=== PATIENT | female | born 1935 | race Caucasian/White ===

== ENCOUNTER 2021-02-21 09:06 | Inpatient (IN) | payer MEDICARE, OTHER ==
[2021-02-21] MEDS ORDERED: ACETAMINOPHEN 325 MG TABLET PO PRN ×2 (11:30→20:00)
[2021-02-21] MEDS ORDERED: MAG HYDROX/AL HYDROX/SIMETH 30 ML UDC PO PRN (11:30)
[2021-02-21] MEDS ORDERED: hydrALAZINE HCL IV 20 MG VIAL IV PRN (11:30)
[2021-02-21 12:00] VITALS: BP 132/58
[2021-02-21] MEDS: BLOOD SUGAR DIAGNOSTIC 1 EACH STRIP IN SCH ×5 (12:00→22:00)
[2021-02-21 12:23] LABS: BASOPHILS % (AUTO) 0.5 % (0.0-2.0); HEMATOCRIT 37 % (33-45); HEMOGLOBIN 12.6 g/dL (11.5-14.8); LYMPHOCYTES % (AUTO) 15.4 % (20.0-44.0); MEAN CORPUSCULAR HGB CONC 34 g/dl (31.0-36.0); MEAN CORPUSCULAR VOLUME 91 fL (82-100); MONOCYTES # (AUTO) 0.4 K/uL (0.1-1.30); MONOCYTES % (AUTO) 5.6 % (2.0-12.0); NEUTROPHILS # (AUTO) 5.1 K/uL (1.8-8.9); NEUTROPHILS % (AUTO) 78.5 % (43.0-81.0); PLATELET COUNT (AUTO) 293 K/uL (150-450); RED BLOOD CELL COUNT(AUTO) 4.08 MIL/uL (4.0-5.2); WHITE BLOOD COUNT (AUTO) 6.6 K/uL (4.3-11.0)
--- NOTE | 2021-02-21 12:46 | NUR ---
TEXTED DR. HADLEY FOR MRI APPROVAL.
--- NOTE | 2021-02-21 12:48 | NUR ---
ON HOLD FOR NOW PER DR. HADLEY, HE WILL LET US KNOW.
[2021-02-21 12:55] LABS: ALANINE AMINOTRANSFERASE 14 U/L (12-78); ALBUMIN 3.5 g/dL (3.4-5.0); ALKALINE PHOSPHATASE 54 U/L (46-116); ASPARTATE AMINOTRANSFERASE 13 U/L (15-37); BILIRUBIN,TOTAL 0.5 mg/dL (0.2-1.0); CALCIUM, SERUM 8.9 mg/dL (8.5-10.1); CARBON DIOXIDE 28 mmol/L (21-32); CHLORIDE 99 mmol/L (98-107); CREATININE 0.9 mg/dL (0.6-1.3); GLUCOSE 115 mg/dL (74-106); MAGNESIUM 2.4 mg/dL (1.8-2.4); PHOSPHORUS 3.6 mg/dL (2.5-4.9); POTASSIUM 3.9 mmol/L (3.5-5.1); SODIUM SERUM 137 mmol/L (136-145); TOTAL PROTEIN, SERUM 7.2 g/dL (6.4-8.2); UREA NITROGEN, BLOOD 13 mg/dL (7-18)
[2021-02-21 13:06] LABS: CHOLESTEROL 255 mg/dL (<200); HDL CHOLESTEROL 96 mg/dL (40-60); LDL 143 mg/dL (0-99); TRIGLYCERIDES 96 mg/dL (30-150)
--- NOTE | 2021-02-21 13:09 | NUR ---
MRI APPROVED, LEAD RUBY ON RAILS DEVELOPER NOTIFIED
[2021-02-21] MEDS: ENOXAPARIN SODIUM 40 MG/0.4 ML DISP.SYRIN SQ SCH (14:17)
[2021-02-21] MEDS ORDERED: BENA20TA9 PO (14:26)
[2021-02-21] MEDS ORDERED: GABA-532 PO (14:26)
[2021-02-21] MEDS ORDERED: AMLO-213 PO (14:26)
[2021-02-21] MEDS ORDERED: CARV12.52 PO (14:26)
[2021-02-21] MEDS ORDERED: FURO40TA5 PO (14:26)
[2021-02-21] MEDS ORDERED: ASPI-1420 PO (14:26)
[2021-02-21] MEDS ORDERED: DULO60CA64 PO (14:26)
[2021-02-21] MEDS ORDERED: LORA-259 PO (14:26)
[2021-02-21] MEDS ORDERED: OLOP2.5D12 EACHEYE (14:26)
[2021-02-21] MEDS ORDERED: MEMA10TA56 PO (14:27)
[2021-02-21] MEDS ORDERED: ATOR40TA PO (14:27)
[2021-02-21] MEDS ORDERED: IBUP-1953 PO (14:27)
[2021-02-21] MEDS ORDERED: AMIT10TA6 PO (14:40)
[2021-02-21] MEDS ORDERED: MIRT-91 PO (14:40)
[2021-02-21] MEDS ORDERED: ACET-868 PO (14:40)
[2021-02-21] MEDS ORDERED: MECL-159 PO (14:40)
[2021-02-21] MEDS ORDERED: DOCU-141 PO (14:40)
[2021-02-21] MEDS ORDERED: QUET25TA PO (14:40)
[2021-02-21 16:00] VITALS: BP 97/51
[2021-02-21] MEDS ORDERED: OLANZAPINE 10 MG VIAL IM ONE (19:00)
--- NOTE | 2021-02-21 19:07 | NUR ---
RN NOTE PT IS AGITATED, STRIKING OUT AT NURSING PERSONNEL AND MDs, expressing frustation and foul language in her tongue towards nursing staff. Security called, pt calmed down for a short while and began agitating again, pt removed one of the IVs on her forearm, MD aware.
--- NOTE | 2021-02-21 19:30 | NUR ---
DROP WIRE OPERATOR NOTES RECEIVED ON BED CONFUSED,VERY MUCH AGITATED,SITTER AT BEDSIDE.SALINE LOCK RIGHT FORE ARM INTACT AND PATENT.PATIENT REFUSED TO WEAR HOSPITAL GOWN.CALL LIGHT IN [facility],WILL CONTINUE TO MONITOR BEHAVIOR.
[2021-02-21 20:00] VITALS: BP 96/53
[2021-02-21] MEDS ORDERED: MECLIZINE HCL 25 MG TABLET PO PRN (20:00)
[2021-02-21] MEDS ORDERED: LORAZEPAM 1 MG TABLET PO PRN (20:00)
[2021-02-21] MEDS ORDERED: IBUPROFEN 400 MG TABLET PO PRN (20:00)
--- NOTE | 2021-02-21 21:30 | NUR ---
WAIST CUTTER NOTES ALL DUE PO MEDS ADMINISTERED,TAKEN WELL
[2021-02-21] MEDS: DOCUSATE SODIUM 100 MG CAPSULE PO SCH (21:46)
[2021-02-21] MEDS: MEMANTINE HCL 5 MG TABLET PO SCH (21:47)
[2021-02-21] MEDS: ACETAMINOPHEN 325 MG TABLET PO SCH (21:49)
[2021-02-21] MEDS ORDERED: MIRTAZAPINE 15 MG TABLET PO SCH (22:00)
[2021-02-21] MEDS ORDERED: QUETIAPINE FUMARATE 25 MG TABLET PO SCH (22:00)
[2021-02-21] MEDS ORDERED: SIMVASTATIN 20 MG TABLET PO SCH (22:00)
[2021-02-21] MEDS ORDERED: SIMVASTATIN 40 MG TABLET PO SCH (22:00)
[2021-02-21] MEDS ORDERED: ATORVASTATIN 40 MG TABLET PO SCH (22:00)
--- NOTE | 2021-02-21 22:00 | NUR ---
CLOTH DESIGNER NOTES ACCU-CHECK BLOOD SUGAR CHECK 104,NO INSULIN COVERAGE.
[2021-02-22] VITALS: BP 134/63
--- NOTE | 2021-02-22 01:04 | NUR ---
SENIOR MECHANICAL DESIGN ENGINEER NOTES AWAKE,VERY ANXIOUS,WALKS AROUND IN THE ROOM,MEDICATED WITH ATIVAN 1MG PO ORDERED FOR ANXIETY.FALL PRECAUTION OBSERVED.SITTER AT BEDSIDE FOR SAFETY.
--- NOTE | 2021-02-22 03:30 | NUR ---
COMMUNITY SERVICE DIRECTOR NOTES SLEEPING THIS TIME,SITTER AT BEDSIDE.
[2021-02-22 04:00] VITALS: BP 128/72
--- NOTE | 2021-02-22 06:00 | NUR ---
CONVEYOR LINE BATTERY CHARGER NOTES ACCU-CHECK BLOOD SUGAR CHECK 93,NO INSULIN COVERAGE.
--- NOTE | 2021-02-22 06:07 | NUR ---
TRANSPORTATION INSPECTOR NOTES AMBULATE IN THE HALLWAYS WITH WALKER ACCOMPANIED BY NURSE AND SITTER,TOLERATED WELL.NO SOB NOTED.
--- NOTE | 2021-02-22 06:14 | NUR ---
COLLECTION TECHNICIAN NOTES STILL REFUSED TELE BOX.BLOOD SUGAR WITH IN NORMAL LIMITS,STILL WITH EPISODE OF CONFUSION,EASILY GETS AGITATED.FOR MRI BRAIN TODAY WITHOUT CONTRAST.CHECKLIST DONE.NO DISTRESS.
[2021-02-22 06:16] LABS: CALCIUM, SERUM 8.7 mg/dL (8.5-10.1); CREATININE 0.9 mg/dL (0.6-1.3); MAGNESIUM 2.3 mg/dL (1.8-2.4); PHOSPHORUS 3.9 mg/dL (2.5-4.9); POTASSIUM 3.5 mmol/L (3.5-5.1)
[2021-02-22 06:30] LABS: BASOPHILS % (AUTO) 0.7 % (0.0-2.0); HEMATOCRIT 32 % (33-45); HEMOGLOBIN 10.9 g/dL (11.5-14.8); LYMPHOCYTES # (AUTO) 1.4 K/uL (0.8-4.8); LYMPHOCYTES % (AUTO) 21.5 % (20.0-44.0); MEAN CORPUSCULAR HGB CONC 35 g/dl (31.0-36.0); MEAN CORPUSCULAR VOLUME 90 fL (82-100); MONOCYTES # (AUTO) 0.6 K/uL (0.1-1.30); MONOCYTES % (AUTO) 8.5 % (2.0-12.0); NEUTROPHILS # (AUTO) 4.6 K/uL (1.8-8.9); NEUTROPHILS % (AUTO) 69.3 % (43.0-81.0); PLATELET COUNT (AUTO) 296 K/uL (150-450); RED BLOOD CELL COUNT(AUTO) 3.51 MIL/uL (4.0-5.2); WHITE BLOOD COUNT (AUTO) 6.7 K/uL (4.3-11.0)
[2021-02-22] MEDS: BLOOD SUGAR DIAGNOSTIC 1 EACH STRIP IN SCH ×4 (06:42→21:59)
--- NOTE | 2021-02-22 07:35 | NUR ---
MS RN OPENING NOTES RECEIVED PT IN BED, RESTING WITH EYES CLOSED. BREATHING IS EVEN AND UNLABORED. NO S/SX OF RESPIRATORY DISTRESS. PT IS ON NASAL CANNULA AT 4L/MIN AND TOLERATING WELL. NO SOB NOTED. IV ACCESS IN R FOREARM #20. IV IS INTACT, PATENT, AND FLUSHING WELL. SAFETY MEASURES IN PLACE: BED IN LOWEST, LOCKED POSITION, BRAKES ON, SIDERAILS UP x2. SITTER AT BEDSIDE.WILL CONTINUE TO MONITOR.
[2021-02-22] MEDS ORDERED: ASPIRIN EC 81 MG TABLET.DR PO SCH (09:00)
[2021-02-22] MEDS: ENOXAPARIN SODIUM 40 MG/0.4 ML DISP.SYRIN SQ SCH ×2 (09:00→09:03)
[2021-02-22] MEDS: GABAPENTIN 300 MG CAPSULE PO SCH ×2 (09:04→17:07)
[2021-02-22] MEDS: PANTOPRAZOLE 40 MG TABLET.DR PO SCH (09:04)
[2021-02-22] MEDS: ASPIRIN 81 MG TAB.CHEW PO SCH (09:04)
[2021-02-22] MEDS: DULOXETINE HCL 30 MG CAPSULE.DR PO SCH (09:04)
[2021-02-22] MEDS: FUROSEMIDE 20 MG TABLET PO SCH (09:05)
[2021-02-22] MEDS: CARVEDILOL 12.5 MG TABLET PO SCH ×2 (09:09→17:19)
[2021-02-22] MEDS: AMLODIPINE BESYLATE 10 MG TABLET PO SCH (09:09)
[2021-02-22] MEDS: BENAZEPRIL HCL 20 MG TABLET PO SCH (09:09)
[2021-02-22] MEDS: OLOPATADINE HCL 0.1% OPHTH BOTTLE EACHEYE SCH ×2 (09:11→17:07)
--- NOTE | 2021-02-22 11:00 | NUR ---
ADALI NOTES MIRA ALFARO, IN THE UNIT AND SEEN PATIENT. SPOKE W/ DTJoslyn FENTON ([phone]), AWARE OF PLAN OF CARE FOR PATIENT. Addendum: 02/22/21 at 1242 by MATI SHEFFIELD RN CORRECTION: GRAND ZAKI FENTON
--- NOTE | 2021-02-22 12:35 | NUR ---
RN NOTES SPOKE W/ KAVIN FROM RADIOLOGY, WILL CORROSION CONTROL FITTER PATIENT FOR MRI PROCEDURE. JOSSY CURRENTLY AT [facility] W/ PATIENT AND MADE AWARE TO TRANSLATE FOR PATIENT.
[2021-02-22] MEDS ORDERED: AMITRIPTYLINE HCL 10 MG TABLET PO SCH (18:00)
--- NOTE | 2021-02-22 18:35 | NUR ---
MS RN OPENING NOTES PT IN BED, RESTING COMFORTABLY. PT IS [place] SPEAKING, GRANDDAUGHTER AND TECHNICAL OPERATIONS SPECIALIST TRANSLATED. BREATHING IS EVEN AND UNLABORED. NO S/SX OF RESPIRATORY DISTRESS. NO SOB NOTED. IV ACCESS IN R FOREARM #20. IV IS INTACT, PATENT, AND FLUSHING WELL. NO IVF RUNNING AT THE MOMENT. SAFETY MEASURES IN PLACE: BED IN LOWEST, LOCKED POSITION, BRAKES ON, SIDERAILS UP x2. SITTER AT BEDSIDE. WILL ENDORSE TO ONCOMING SHIFT.
[2021-02-22 20:00] VITALS: BP 93/44
[2021-02-22] MEDS: ACETAMINOPHEN 325 MG TABLET PO SCH (22:00)
[2021-02-22] MEDS: ATORVASTATIN 40 MG TABLET PO SCH (22:00)
[2021-02-22] MEDS: DOCUSATE SODIUM 100 MG CAPSULE PO SCH (22:00)
[2021-02-22] MEDS ORDERED: QUETIAPINE FUMARATE 25 MG TABLET PO SCH (22:00)
[2021-02-22] MEDS: MEMANTINE HCL 5 MG TABLET PO SCH (22:00)
[2021-02-23] VITALS: BP 92/44
[2021-02-23 04:00] VITALS: BP 101/40
[2021-02-23 06:29] LABS: BASOPHILS % (AUTO) 0.6 % (0.0-2.0); CALCIUM, SERUM 8.1 mg/dL (8.5-10.1); CARBON DIOXIDE 30 mmol/L (21-32); CHLORIDE 98 mmol/L (98-107); CREATININE 1.9 mg/dL (0.6-1.3); GLUCOSE 102 mg/dL (74-106); HEMATOCRIT 31 % (33-45); HEMOGLOBIN 10.6 g/dL (11.5-14.8); LYMPHOCYTES # (AUTO) 2.6 K/uL (0.8-4.8); LYMPHOCYTES % (AUTO) 33.6 % (20.0-44.0); MAGNESIUM 2.4 mg/dL (1.8-2.4); MEAN CORPUSCULAR HGB CONC 34 g/dl (31.0-36.0); MEAN CORPUSCULAR VOLUME 92 fL (82-100); MONOCYTES # (AUTO) 0.7 K/uL (0.1-1.30); MONOCYTES % (AUTO) 8.5 % (2.0-12.0); NEUTROPHILS # (AUTO) 4.4 K/uL (1.8-8.9); NEUTROPHILS % (AUTO) 57.3 % (43.0-81.0); PHOSPHORUS 5.8 mg/dL (2.5-4.9); PLATELET COUNT (AUTO) 259 K/uL (150-450); POTASSIUM 3.7 mmol/L (3.5-5.1); RED BLOOD CELL COUNT(AUTO) 3.36 MIL/uL (4.0-5.2); SODIUM SERUM 135 mmol/L (136-145); UREA NITROGEN, BLOOD 20 mg/dL (7-18); WHITE BLOOD COUNT (AUTO) 7.7 K/uL (4.3-11.0)
[2021-02-23] MEDS: BLOOD SUGAR DIAGNOSTIC 1 EACH STRIP IN SCH ×4 (06:38→22:32)
--- NOTE | 2021-02-23 06:45 | NUR ---
NURSE MIDWIFE NOTES AWAKE & RESPONSIVE. NOT IN ANY DISTRESS. NO SOB NOTED. DENIES ANY PAIN OR DISCOMFORT AT THIS TIME. ON TELE SR @ 68 WITH IV-HL PATENT & INTACT. AM CARE DONE. MONITORED ACCORDINGLY. CALL LIGHT WITHIN REACH. BED IN LOWEST POSITION. SR UP X 3 WITH BED ALARM ON FOR SAFETY. WILL ENDORSE TO NEXT SHIFT.
--- NOTE | 2021-02-23 07:36 | NUR ---
JOCKEY VALET OPENING NOTES RECEIVED PATIENT IN BED, ASLEEP. PATIENT ON OXYGEN THERAPY AT 4 LPM VIA NASAL CANNULA; BREATHING EVEN AND UNLABORED AT THIS TIME. TELE MONITOR WITH A CURRENT READING OF ST 70. NO S/S OF PAIN SUCH FACIAL GRIMACING, MOANING OR GUARDING NOTED. IV ACCESS ON RFA G # 20; SL. SAFETY PRECAUTIONS IN PLACE; BED IN LOW POSITION AND LOCKED, RAILS UP X2, CALL LIGHT WITHN REACH. WILL CONTINUE TO MONITOR PATIENT.
[2021-02-23 08:00] VITALS: BP 128/59
--- NOTE | 2021-02-23 08:00 | NUR ---
WEIGHMASTER LEAD NOTES DURING NEUROLOGICAL ASSESSMENT PATIENT SLEEPY AND SAYS SHE STARTED TO FORGET THINGS.
[2021-02-23] MEDS: AMLODIPINE BESYLATE 10 MG TABLET PO SCH (09:00)
[2021-02-23] MEDS: BENAZEPRIL HCL 20 MG TABLET PO SCH (09:00)
[2021-02-23] MEDS: CARVEDILOL 12.5 MG TABLET PO SCH ×2 (09:00→16:04)
[2021-02-23] MEDS: DULOXETINE HCL 30 MG CAPSULE.DR PO SCH (09:49)
[2021-02-23] MEDS: GABAPENTIN 300 MG CAPSULE PO SCH ×2 (09:49→16:06)
[2021-02-23] MEDS: ASPIRIN 81 MG TAB.CHEW PO SCH (09:50)
[2021-02-23] MEDS: OLOPATADINE HCL 0.1% OPHTH BOTTLE EACHEYE SCH ×2 (09:50→16:06)
[2021-02-23] MEDS: PANTOPRAZOLE 40 MG TABLET.DR PO SCH (09:50)
[2021-02-23] MEDS: FUROSEMIDE 20 MG TABLET PO SCH (09:51)
[2021-02-23] MEDS: ENOXAPARIN SODIUM 40 MG/0.4 ML DISP.SYRIN SQ SCH (09:53)
[2021-02-23 12:00] VITALS: BP 107/51
[2021-02-23] MEDS ORDERED: IV NS 0.9% 500 ML IV ONE (13:00)
--- NOTE | 2021-02-23 14:42 | NUR ---
Blending Operator Consultation 11:15am: Blending Operator consultation requested for ischemic stroke. Per ED physicians notes, patient presented to an outside hospital ER with complaints of acute left upper extremity weakness. Per medical history, patient has HTN and baseline dementia. This FACTORY CLERK met with the patient, bedside in her hospital room. Patient was lying down in bed, awake, presented calm. Patient is an 85-year old female, Lebanese speaking. This FACTORY CLERK addressed patient in Lebanese and conducted this interview in Lebanese. Patient is oriented to name, place (stated she is in the hospital), stated that the month is February, and the year is 2020. Patient was able to provide this FACTORY CLERK with her , and the names of her son and [id number] (David and Quincy). Patient states that she lives at home with her son and [id number], is ambulatory with a FWW, and is able to tend to her basic ADLs, however family helps her with any needs she may have. Patient stated I do forget from time to time, and sometimes Ill get agitated, but not all the time. Patient denies use of drugs, alcohol, and cigarettes. Patient denies hx of mental illness, however has baseline Dementia and does take psychiatric medication at home. This FACTORY CLERK administered the PHQ-9, and patient scored a 0 on it, stating that she has not experienced any recent changes in her mood or behavior, and that she is very happy and content at home with her family. Per nursing notes, patient had been agitated, confused, and was using foul language when admitted to the hospital. Patient has a 1:1 sitter. Patient has already been seen by psychiatrist, Dr. Camacho, during this hospitalization (see psychiatry consultation notes). This FACTORY CLERK filed informational materials on stroke, titled Empowerment after Stroke and Caregivers Guide to Stroke, in patients chart, to be provided to family upon discharge. Discharge plans discussed, and patient stated that she will be returning home with her family. Patients affect and behavior during this interview were WNL. Patient maintained appropriate eye contact. Speech was clear, voice was normal. This FACTORY CLERK met with insulation cupola charger Gina and informed her of above.
[2021-02-23 16:50] LABS: CALCIUM, SERUM 7.7 mg/dL (8.5-10.1); CREATININE 1.1 mg/dL (0.6-1.3); POTASSIUM 4.2 mmol/L (3.5-5.1)
[2021-02-23 17:33] VITALS: BP 107/68
--- NOTE | 2021-02-23 18:40 | NUR ---
PITCH WORKER CLOSING NOTES PATIENT REMAINS IN BED, AWAKE, A/O X3. PATIENT ON ROOM AIR; BREATHING EVEN AND UNLABORED AT THIS TIME. TELE MONITOR WITH A CURRENT READING OF ST 70. NO COMPLAINS OF PAIN. IV ACCESS ON L HAND G # 22; SL. ALL NEEDS ATTENDED DURING THE DAY. SAFETY PRECAUTIONS IN PLACE; BED IN LOW POSITION AND LOCKED, RAILS UP X2, CALL LIGHT WITHIN REACH. WILL ENDORSE TO COMMERCIAL ENGINEER NURSE.
--- NOTE | 2021-02-23 19:49 | NUR ---
APPLE SORTER OPENING NOTES Patient is sleeping at this time though easy to wake. Sitter at bedside. No signs of distress. Safety measures in place. Will continue to monitor.
[2021-02-23] MEDS ORDERED: QUETIAPINE FUMARATE 25 MG TABLET PO SCH (22:00)
[2021-02-23] MEDS: ATORVASTATIN 40 MG TABLET PO SCH (22:17)
[2021-02-23] MEDS: ACETAMINOPHEN 325 MG TABLET PO SCH (22:17)
[2021-02-23] MEDS: MEMANTINE HCL 5 MG TABLET PO SCH (22:17)
[2021-02-23] MEDS: DOCUSATE SODIUM 100 MG CAPSULE PO SCH (22:17)
[2021-02-24] VITALS: BP 93/51
--- NOTE | 2021-02-24 01:24 | NUR ---
Patient complain of severe chest pain after ambulating to bathroom, patient noted to be sweating also. VS 102/48, HR 89, O2 96% RR 20. Normal sinus rhythm on monitor. MD notified with new order STAT EKG and STAT CXR. Rt called. Radiology called. B/P too low for nitro per MD. Relayed to patient to be on strict bed rest to conserve energy.
--- NOTE | 2021-02-24 01:56 | NUR ---
Patient given maalox just in case CP is heartburn
--- NOTE | 2021-02-24 02:40 | NUR ---
Patient asleep but easy to wake, reports chest pain much better only a 2/10. EKG shows NSR, CXR negative. made aware.
[2021-02-24 04:07] VITALS: BP 104/54
[2021-02-24] MEDS: BLOOD SUGAR DIAGNOSTIC 1 EACH STRIP IN SCH ×2 (06:34→12:34)
[2021-02-24 06:40] LABS: BASOPHILS % (AUTO) 0.2 % (0.0-2.0); HEMATOCRIT 32 % (33-45); HEMOGLOBIN 10.7 g/dL (11.5-14.8); LYMPHOCYTES # (AUTO) 0.8 K/uL (0.8-4.8); LYMPHOCYTES % (AUTO) 11.9 % (20.0-44.0); MEAN CORPUSCULAR HGB CONC 34 g/dl (31.0-36.0); MEAN CORPUSCULAR VOLUME 92 fL (82-100); MONOCYTES # (AUTO) 0.5 K/uL (0.1-1.30); MONOCYTES % (AUTO) 8.5 % (2.0-12.0); NEUTROPHILS # (AUTO) 5.1 K/uL (1.8-8.9); NEUTROPHILS % (AUTO) 79.4 % (43.0-81.0); PLATELET COUNT (AUTO) 219 K/uL (150-450); RED BLOOD CELL COUNT(AUTO) 3.42 MIL/uL (4.0-5.2); WHITE BLOOD COUNT (AUTO) 6.4 K/uL (4.3-11.0)
[2021-02-24 06:51] LABS: CALCIUM, SERUM 7.7 mg/dL (8.5-10.1); CREATININE 0.9 mg/dL (0.6-1.3); MAGNESIUM 2.3 mg/dL (1.8-2.4); PHOSPHORUS 3.7 mg/dL (2.5-4.9); POTASSIUM 3.8 mmol/L (3.5-5.1)
[2021-02-24 06:54] LABS: CREATININE, URINE 54.3 MG/DL (30.0-125.0)
--- NOTE | 2021-02-24 07:00 | NUR ---
No further episodes of CP. Resolved. Kept on bedrest. Tolerating well. Kept NPO since 0200 maalox admin for upcoming procedure CTA head and neck. Verbal consent obtained via telephone from daughter Arainna Boo. Able to get #20G access to LFA for upcoming procedure. No hypo or hyperglycemic reactions noted.
--- NOTE | 2021-02-24 07:10 | NUR ---
RN OPENING NOTE RECEIVED PATIENT SITTING IN THE BED. A/O X 2-3. ON ROOM AIR, SATURATING WELL AT 97%. NO SOB NOTED. IN NO APPARENT DISTRESS. DENIES ANY PAIN OR DISCOMFORT AT THIS TIME. SAFETY MEASURES MAINTAINED. BED IN LOWEST POSITION, BRAKES LOCKED. SIDE RAILS UP X2. CALL LIGHT WITHIN REACH. WILL CONTINUE PLAN OF CARE. Addendum: 02/24/21 at 0936 by BRANDON DAY RN CONT* IV ACCESS ON L HAND #22 G, INTACT AND PATENT
[2021-02-24 07:13] LABS: BILIRUBIN,URINE NEGATIVE (NEGATIVE); COLOR,URINE YELLOW (YELLOW); LEUKOCYTE ESTERASE ,URINE NEGATIVE (NEGATIVE); NITRITE, URINE NEGATIVE (NEGATIVE); PROTEIN,URINE NEGATIVE (NEGATIVE); UGLUCOSE NEGATIVE (NEGATIVE); UROBILINOGEN,URINE 0.2 EU/dL (0.2)
[2021-02-24 07:37] LABS: BACTERIA,URINE Rare /HPF (None Seen); RBC,URINE 0-2 /HPF (0-2); SQUAMOUS EPITHELIAL CELL,UR Rare /HPF (None Seen); WBC,URINE 0-2 /HPF (0-3)
[2021-02-24] MEDS: AMLODIPINE BESYLATE 10 MG TABLET PO SCH (08:22)
[2021-02-24] MEDS: GABAPENTIN 300 MG CAPSULE PO SCH (08:22)
[2021-02-24 08:23] VITALS: BP 111/62
[2021-02-24] MEDS: DULOXETINE HCL 30 MG CAPSULE.DR PO SCH (08:23)
[2021-02-24] MEDS: BENAZEPRIL HCL 20 MG TABLET PO SCH (08:23)
[2021-02-24] MEDS: PANTOPRAZOLE 40 MG TABLET.DR PO SCH (08:23)
[2021-02-24] MEDS: ASPIRIN 81 MG TAB.CHEW PO SCH (08:23)
[2021-02-24] MEDS: CARVEDILOL 12.5 MG TABLET PO SCH (08:23)
[2021-02-24] MEDS: FUROSEMIDE 20 MG TABLET PO SCH (08:23)
[2021-02-24] MEDS: ENOXAPARIN SODIUM 40 MG/0.4 ML DISP.SYRIN SQ SCH (08:25)
[2021-02-24] MEDS: OLOPATADINE HCL 0.1% OPHTH BOTTLE EACHEYE SCH (08:26)
[2021-02-24] MEDS ORDERED: IOHEXOL-350 100 ML VIAL IV ONE (10:11)
[2021-02-24] MEDS ORDERED: IV NS 0.9% 250 ML IV ONE (10:11)
[2021-02-24] MEDS ORDERED: ATOR40TA PO (12:26)
[2021-02-24] MEDS ORDERED: QUET25TA PO (12:26)
[2021-02-24] MEDS ORDERED: CLOP75TA15 PO (13:57)
--- NOTE | 2021-02-24 15:37 | NUR ---
DISCHARGE NOTE PATIENT DISCHARGED. HEALTH TEACHING AND DISCHARGE INSTRUCTIONS GIVEN TO THE DTR AND GRAND DAUGHTER. VERBALIZED UNDERSTANDING. PT IS STABLE BP 110/62 OH 64 RR 18 T 97.6 SA02 99% REMOVED IV ACCESS AND ID WRISTBAND. PT WAS PICKED UP BY HER DTR VIA PRIVATE CAR.
== END 2021-02-24 15:37 | disposition home or self-care (01) | DRG 69 ==
LOC: TELE 10:20
PROVIDERS: ADMIT Registered Nurse; ATTEND Registered Nurse
DX: G45.9 Transient cerebral ischemic attack, unspecified (principal); F03.91 Unspecified dementia, unspecified severity, with behavioral disturbance; F33.1 Major depressive disorder, recurrent, moderate; N17.9 Acute kidney failure, unspecified; E66.01 Morbid (severe) obesity due to excess calories; I10 Essential (primary) hypertension; R29.700 NIHSS score 0; E78.5 Hyperlipidemia, unspecified; E86.0 Dehydration
CPT/HCPCS: 36415; 70496-TC; 70498-TC; 70551-TC; 71045-TC; 76770-TC; 80048-TC; 80053-TC; 80061-TC; 81001; 82570-TC; 82962-TC; 83735-TC; 84100-TC; 84300-TC; 84443-TC; 84484-TC; 85025-TC; 85730-TC; 92526; 92611-TC; 93307-TC; 93880-TC; 97112-TC; 97116-TC; 97530-TC; G0378; J1650; J3490; J7030; J7040; J7050; Q9967